=== PATIENT | female | born 1990 | race Caucasian/White ===

== ENCOUNTER 2019-08-03 13:44 | Outpatient (CLI) | payer OTHER ==
[~2019-08-03] VITALS: Ht 165.1 cm; Wt 137.6 kg
[~2019-08-03 13:44] MED LIST: FERR325T5 PO; METH250T5 PO; PREN-93 PO
[2019-08-03 14:00] VITALS: Ht 165.1 cm; Wt 137.6 kg
[2019-08-03] MEDS ORDERED: TERBUTALINE 1 MG/ML INJ SC ONE (17:30)
[2019-08-03] MEDS ORDERED: LACTATED RINGER'S 1,000 ML IV SCH (18:00)
== END 2019-08-03 19:55 | disposition home or self-care (01) ==
LOC: OBT 13:44 → L-D 13:44 → OBT 19:55
PROVIDERS: ATTEND Specialist
DX: O76 Abnormality in fetal heart rate and rhythm complicating labor and delivery (principal); Z3A.35 35 weeks gestation of pregnancy
CPT/HCPCS: 36415; 76818; 96360; J3105; J7120; Z7500; G0463